=== PATIENT | female | born 1985 | race Asian ===

== ENCOUNTER 2025-04-17 08:23 | Day surgery (SDC) | payer BC ==
[2025-04-17] MEDS ORDERED: Bacitracin 1 PK ONE ×2 (09:22→10:27)
[2025-04-17] MEDS ORDERED: Lidocaine 1% w/Epinephrine 1:200K 30 ML VIAL ONE (09:22)
[2025-04-17] MEDS ORDERED: PROPOFOL 20 ML ONE (09:23)
[2025-04-17] MEDS ORDERED: CEFAZOLIN 1 GM VIAL ONE (10:01)
[2025-04-17] MEDS ORDERED: Lidocaine 1% PF 5 ML VIAL ONE (10:01)
[2025-04-17] MEDS ORDERED: Rocuronium Bromide 10 MG/ML (10ML VIAL) ONE (10:01)
[2025-04-17] MEDS ORDERED: PHENYLEPHRINE-NS 100 MCG/ML 10 ML SYRINGE ONE (10:10)
== END 2025-04-17 12:05 | disposition home or self-care (01) ==
LOC: CSHSDC 08:23
PROVIDERS: ATTEND Otolaryngology Plastic Surgery within the Head & Neck
PROC: 0WB60ZZ Excision of Neck, Open Approach (ICD-10-PCS; principal; 2025-04-17)
DX: Q89.2 Congenital malformations of other endocrine glands (principal); K21.9 Gastro-esophageal reflux disease without esophagitis; J30.9 Allergic rhinitis, unspecified; Z88.8 Allergy status to other drugs, medicaments and biological substances; Z88.6 Allergy status to analgesic agent; Z91.041 Radiographic dye allergy status
CPT/HCPCS: 88305; 88311; J0690; J1100; J2704; J3010